=== PATIENT | female | born 1965 | race Caucasian/White ===

== ENCOUNTER 2020-09-07 10:35 | Outpatient (CLI) | payer OTHER, SELFPAY | END 2020-09-07 10:36 | disposition home or self-care (01) | LOC: ANHCOVIDVC 10:36 | PROVIDERS: PCP Family Medicine | DX: Z23 Encounter for immunization (principal) | CPT/HCPCS: 0001A; 91300 ==

== ENCOUNTER 2020-09-28 10:10 | Outpatient (CLI) | payer OTHER, SELFPAY | END 2020-09-28 10:11 | disposition home or self-care (01) | LOC: ANHCOVIDVC 10:11 | PROVIDERS: PCP Family Medicine | DX: Z23 Encounter for immunization (principal) | CPT/HCPCS: 0002A; 91300 ==